=== PATIENT | male | born 1980 | race Two or more races ===

== ENCOUNTER 2017-04-02 17:05 | Emergency (ER) | payer MEDICAID, OTHER, SELFPAY ==
[~2017-04-02] VITALS: Ht 172.7 cm; Wt 87.0 kg
[2017-04-02 17:17] VITALS: BP 171/104
[2017-04-02] MEDS ORDERED: CEFAZOLIN 1,000 MG IM ONE (18:00)
== END 2017-04-02 18:56 | disposition home or self-care (01) ==
LOC: ED 18:50
DX: L03.114 Cellulitis of left upper limb (principal); I10 Essential (primary) hypertension; F15.10 Other stimulant abuse, uncomplicated; F12.10 Cannabis abuse, uncomplicated
CPT/HCPCS: 99283

== ENCOUNTER 2021-04-12 03:04 | Emergency (ER) | payer SELFPAY ==
[~2021-04-12] VITALS: Ht 165.1 cm; Wt 78.0 kg
[2021-04-12 03:08] VITALS: BP 156/92
== END 2021-04-12 04:54 ==
LOC: ED 03:30
DX: S60.511A Abrasion of right hand, initial encounter (principal); F10.10 Alcohol abuse, uncomplicated; Y90.0 Blood alcohol level of less than 20 mg/100 ml; I10 Essential (primary) hypertension; W45.8XXA Other foreign body or object entering through skin, initial encounter; Y93.89 Activity, other specified; Y92.89 Other specified places as the place of occurrence of the external cause; Y99.8 Other external cause status
CPT/HCPCS: 36415; 86705; 86706; 86803; 87340; 87806; 99283; G0475